=== PATIENT | female | born 1960 | race Caucasian/White ===

== ENCOUNTER 2019-06-29 19:11 | Observation (INO) ==
[2019-06-29 20:09] LABS: Basophils % 0.5 % (0.1-2.0); Eosinophils # 0.3 K/mm3 (0.0-0.4); Eosinophils % 3.3 % (0.1-12.0); Hematocrit 51.1 % (37.0-47.0); Hemoglobin 16.8 g/dL (12.2-16.2); Lymphocytes # 3.5 K/mm3 (0.7-4.5); Lymphocytes % 42.4 % (10-50); Mean Corpuscular HGB Conc 32.9 g/dL (31.8-35.4); Mean Corpuscular Volume 98.8 fl (81-99); Mean Platelet Volume 8.1 fl (7.4-10.4); Monocytes # 0.6 K/mm3 (0.1-1.0); Monocytes % 6.6 % (1.7-9.3); Neutrophils # 3.9 K/mm3 (1.8-7.8); Neutrophils % 47.1 % (37.0-80.0); Platelet Count 266 K/mm3 (142-424); Red Blood Count 5.17 M/mm3 (4.20-5.40); Red Cell Distribution Width 15.5 % (11.5-17.5); White Blood Count 8.3 K/mm3 (4.8-10.8)
[2019-06-29 20:11] LABS: INR 1.41 (0.9-1.1); Prothrombin Time 14.4 seconds (9.4-11.8)
[2019-06-29 20:20] LABS: Albumin Level 2.9 gm/dL (3.4-5.0); Albumin/Globulin Ratio 0.7 (1.1-1.8); Anion Gap 12.3 mEq/L (5-15); Bilirubin,Total 0.4 mg/dL (0.2-1.0); C-Reactive Protein 0.8 mg/dL (0.0-0.9); Calcium 9.1 mg/dL (8.5-10.1); Globulin 4.4 gm/dl (1.3-3.2); Total Protein,Serum 7.3 gm/dL (6.4-8.2)
--- NOTE | 2019-06-29 20:44 | Emergency Department Note ---
ED Disposition Clinical Impression: Seizure as late effect of cerebrovascular accident (CVA), Diabetes 1.5, managed as type 2, Tobacco use Lower extremity cellulitis Qualifiers: Laterality: right Qualified Code(s): L03.115 - Cellulitis of right lower limb Obesity Qualifiers: Obesity type: due to excess calories Obesity classification: adult class 3 (BMI >= 40) Serious obesity comorbidity presence: with serious comorbidity Body mass index: BMI 45.0-49.9 Qualified Code(s): E66.01 - Morbid (severe) obesity due to excess calories; Z68.42 - Body mass index (BMI) 45.0-49.9, adult Disposition: Admitted as Observation Condition on Discharge: Good Referrals: Provider,Referral, MD [Primary Care Provider] - - Critical Care Critical Care Time: No Attestation: On 06/29/19, the high probability of a clinically significant, sudden or life threatening deterioration of the following system(s) required my full and direct attention, intervention and personal management. The time I documented below is in addition to time spent performing reported procedures but includes the fo llowing listed in this critical care notation. Medical Decision Making - Medical Records Medical records reviewed: Yes: I reviewed the patient's medical records. - Shahbaz Inquiry Pt receiving controlled substance: No Vital Signs: 06/29/19 19:20 Temperature 98.3 F Temperature Source Oral Pulse Rate [Right Radial] 106 H Respiratory Rate 20 Blood Pressure [Right Arm] 145/95 H Blood Pressure Mean [Right Arm] 111 02 Sat by Pulse Oximetry 91 L - Lab Data Lab results reviewed: Yes: I reviewed the patient's lab results. Lab Results 06/29/19 19:40: WBC 8.3, RBC 5.17, Hgb 16.8 H, Hct 51.1 H, MCV 98.8, MCH 32.5 H, MCHC 32.9, RDW 15.5, Plt Count 266, MPV 8.1, Neut % (Auto) 47.1, Lymph % (Auto) 42.4, [place] % (Auto) 6.6, Eos % (Auto) 3.3, Baso % (Auto) 0.5, Neut # (Auto) 3.9, Lymph # (Auto) 3.5, [place] # (Auto) 0.6, Eos # (Auto) 0.3, Baso # (Auto) 0.0 06/29/19 19:40: Sodium 138, Potassium 4.3, Chloride 98, Carbon Dioxide 32, Anion Gap 12.3, BUN 10, Creatinine 1.03 H, Estimated Creat Clear 59, Estimated GFR 55 L, Est GFR ( Amer) 67, Glucose 99, Calcium 9.1, Total Bilirubin 0.4, AST 15, ALT 15, Alkaline Phosphatase 114, C-Reactive Protein 0.8, Total Protein 7.3, Albumin 2.9 L, Globulin 4.4 H, Albumin/Globulin Ratio 0.7 L 06/29/19 19:40: Lactate 1.7 06/29/19 19:40: PT 14.4 H, INR 1.41 H Result diagrams: 06/29/19 19:40 06/29/19 19:40 Orders (Tests/Meds): ED MEDICATIONS Generic Name Dose Route Start Last Admin Trade Name Freq PRN Reason Stop Dose Admin Sodium Chloride 1,000 mls @ 999 mls/hr 06/29/19 19:30 06/29/19 19:54 Sod Chlor 0.9% 1000ml Bag IV 06/29/19 20:30 999 mls/hr .Q1H1M JUDD Administration Discontinued Medications Generic Name Dose Route Start Last Admin Trade Name Freq PRN Reason Stop Dose Admin Ketorolac Tromethamine 30 mg 06/29/19 19:28 06/29/19 19:54 Toradol 30mg/Ml Vial IV 06/29/19 19:29 30 mg ONCE ONE Administration ORDERS Category Date Time Status Complete Blood Count Auto Diff Stat Lab 06/29/19 19:40 Results Erythrocyte Sedimentation Rate Stat Lab 06/29/19 19:40 Results Levetiracetam (Keppra) Stat Lab 06/29/19 19:53 Ordered Blood Culture Stat Micro 06/29/19 19:54 Received Extremity Problem HPI - General Chief complaint: Extremity Injury, Lower Stated complaint: Right leg swollen Time Seen by Provider: 06/29/19 20:00 Mode of Arrival: Ambulatory Limitations: No Limitations Description of Symptoms (Recalled from ER Triage Doc. by RN): pt states that she is having right lower leg pain and swelling. pt states she has taken 2 rounds of antibiotics for this complaint with no relief. pt states the extremity is painful. - History of Present Illness HPI Narrative: pt with reddness and swelling of rt lower ext despite abx - she is on coumadin and has hx of upper ext dvt and cva in past and has tob use MD Complaint: extremity pain, extremity swelling Onset (ago): week(s) Consistency: constant Location: right, lower extremity Severity scale (1-10): 5 Quality: burning Radiation: none Associated symptoms: denies other symptoms Context: history of DVT, history of peripheral vascular disease - Related Data Home Medications Medication Instructions Recorded Confirmed Atorvastatin Calcium [Atorvastatin 40 mg PO DAILY 11/07/18 11/07/18 40mg Tab] Buspirone HCl 15 mg PO DAILY 11/07/18 11/07/18 Duloxetine HCl 20 mg PO DAILY 11/07/18 11/07/18 Fluticasone Propionate 1 spray INHALATION DAILY 11/07/18 11/07/18 Gabapentin [Neurontin 600mg 600 mg PO DAILY 11/07/18 11/07/18 tablet] Loratadine [Claritin 10mg Tablet] 10 mg PO DAILY 11/07/18 11/07/18 Meloxicam 15 mg PO DAILY 11/07/18 11/07/18 Metformin HCl [Metformin HCl ER] 1,000 mg PO DAILY 11/07/18 11/07/18 Methocarbamol [Methocarbamol 500mg 500 mg PO DAILY 11/07/18 11/07/18 Tablet] Metoprolol Succinate [Toprol XL 50 mg PO DAILY 11/07/18 11/07/18 50mg Tablet] Multivit,Calc,Mins/Iron/Folic [One 1 tab PO DAILY 11/07/18 11/07/18 Daily Women's Health Tab] Ropinirole HCl 1 mg PO DAILY 11/07/18 11/07/18 Trazodone HCl 50 mg PO DAILY 11/07/18 11/07/18 Warfarin Sodium 5 mg PO DAILY 11/07/18 11/07/18 levETIRAcetam [Levetiracetam] 750 mg PO BID 11/07/18 11/07/18 Previous Rx's Medication Instructions Recorded Fluconazole [Diflucan 100mg tablet] 100 mg PO DAILY #14 tablet 11/07/18 cephALEXin [Keflex 500mg Cap] 500 mg PO Q6H 10 Days #40 cap 06/01/19 Allergies Allergy/AdvReac Type Severity Reaction Status Date / Time Penicillins [PENICILLINS] Allergy Mild Verified 06/29/19 19:27 Iodinated Contrast Media - Allergy Unknown Verified 06/29/19 19:27 Oral and [IODINATED CONTRAST MEDIA - IV DYE] [facility] History - Hepatitis A Screen Drug use history?: No High risk sexual behaviors?: No History of sexually transmitted infection?: No Currently employed?: No Childcare worker?: No Do you have indoor plumbing?: Yes Do you have electricity?: Yes Attestation statement:: This patient has been screened for Hepatitis A risk factors. I have reviewed the patient's past medical history: Yes Medical History: Reports:: Cancer, Diabetes Mellitus Type 2 Denies:: Diabetes Mellitus Type 1 Laterality Cases: Bilateral: Tonsillectomy - Social History Smoking Status: Current every day smoker Tobacco Type: cigarettes # Packs/Day (cigarettes): 1 Alcohol Intake: never Occupational Status: disabled ROS Obtained: Yes All systems reviewed & no additional complaints - Constitutional Constitutional: Denies fever(s) - Eyes Eyes: Denies change in vision - ENT Ears, Nose, Mouth, and Throat: Denies sore throat - Cardiovascular Cardiovascular: Denies chest pain - Respiratory Respiratory: No cough - Gastrointestinal Gastrointestingal: Denies: vomiting - Musculoskeletal Musculoskeletal: Denies joint pain - Integumentary/Breasts Skin/Breast: Reports as per HPI, Reports rash - Neurologic Neurologic: Denies focal weakness Physical Exam - General General appearance: alert - Head Head exam: normocephalic - Eye Eye exam: Present: PERRL, EOMI. Absent: scleral icterus - ENT ENT exam: Present: mucous membranes dry - Neck Neck exam: Present: trachea midline - Respiratory Respiratory exam: Absent: respiratory distress - Cardiovascular Cardiovascular exam: Present: regular rate, systolic murmur, +S4 - Abdominal Exam Abdominal exam: Present: soft - Extremities Exam Extremities exam: Present: calf tenderness - Expanded Lower Extremity Exam Right Lower leg exam: Present: tenderness, swelling, erythema. Absent: Homans' sign Neurovascular/Tendon exam: Absent: normal capillary refill, extremity cold to touch - Neurological Exam Neurological exam: Present: alert, oriented X3, CN II-XII intact - Psychiatric Psychiatric exam: Present: normal affect - Skin Skin exam: Present: rash, other (reddness to rt lower ext )
[2019-06-29 21:40] LABS: Erythrocyte Sedimentation Rate 40 mm/hr (0-30)
[2019-06-30 06:09] LABS: Basophils % 0.6 % (0.1-2.0); Eosinophils # 0.3 K/mm3 (0.0-0.4); Eosinophils % 4.8 % (0.1-12.0); Hematocrit 46.7 % (37.0-47.0); Lymphocytes # 2.5 K/mm3 (0.7-4.5); Lymphocytes % 44.6 % (10-50); Mean Corpuscular HGB Conc 31.3 g/dL (31.8-35.4); Mean Corpuscular Volume 99.7 fl (81-99); Monocytes # 0.5 K/mm3 (0.1-1.0); Monocytes % 8.6 % (1.7-9.3); Neutrophils # 2.3 K/mm3 (1.8-7.8); Neutrophils % 41.3 % (37.0-80.0); Platelet Count 228 K/mm3 (142-424); Red Blood Count 4.69 M/mm3 (4.20-5.40); Red Cell Distribution Width 15.4 % (11.5-17.5); White Blood Count 5.5 K/mm3 (4.8-10.8)
[2019-06-30 06:15] LABS: Anion Gap 6.9 mEq/L (5-15); Calcium 8.5 mg/dL (8.5-10.1)
[2019-06-30 06:17] LABS: INR 1.53 (0.9-1.1); Prothrombin Time 15.6 seconds (9.4-11.8)
[2019-06-30 06:47] LABS: Hemoglobin 14.6 g/dL (12.2-16.2)
--- NOTE | 2019-06-30 07:04 | Non-Invasive Vascular Report ---
"Venous Exam Indications: 729.5 Pain in limb. 782.3 Edema. IMPRESSIONS 1. There is no evidence of significant Reflux. 2. No evidence of deep or superficial vein thrombosis involving the right lower extremity 3. Unable to scan in the R groin area d/t body habitus. Limited exam. Right lower extremity venous duplex evaluation. Doppler flow study including spectral analysis, color and molina scale imaging. Location: Bedside. Patient status: Inpatient. Tables: Venous flow and imaging: + + + + + |Location |Overall |Flow properties |Comments | + + + + + |Right common femoral |Not | | | | |visualized | | | + + + + + |Right saphenofemoral |Not | | | |junction |visualized | | | + + + + + |Right profunda |Not | | | |femoral |visualized | | | + + + + + |Right femoral |Patent |Normal phasicity; | | | | |spontaneous; normal| | | | |augmentation; | | | | |compressible | | + + + + + |Right greater |Patent |Normal phasicity; | | |saphenous | |spontaneous; normal| | | | |augmentation; | | | | |compressible | | + + + + + |Right popliteal |Patent |Normal phasicity; | | | | |spontaneous; normal| | | | |augmentation; | | | | |compressible | | + + + + + |Right posterior |Patent |Compressible |Dificult to | |tibial | | |image. | + + + + + |Right peroneal |Patent |Compressible |Dificult to | | | | |image | + + + + + |Right gastrocnemius |Patent |Compressible |Dificult to | | | | |image | + + + + + |Right soleal |Not | | | | |visualized | | | + + + + + (Report amended ) Electronically signed by: Gera Rico [id number]"
--- NOTE | 2019-06-30 07:30 | Pharmacy Consult Notes ---
[facility] Pharmacy VTE Monitoring - Patient Demographics Admission date: 06/29/19 Report Date: 06/30/19 Time: 07:30 Allergies/Adverse Reactions: Patient Allergies Penicillins [PENICILLINS] Allergy (Mild, Verified 06/29/19 19:27) Iodinated Contrast Media - Oral and [IODINATED CONTRAST MEDIA - IV DYE] Allergy (Unknown, Verified 06/29/19 19:27) Height: 1.7 m Weight: 136.531 kg Patient Problems: Current Active Problems Lower extremity cellulitis (Acute) Obesity (Acute) Seizure as late effect of cerebrovascular accident (CVA) (Acute) Diabetes 1.5, managed as type 2 (Acute) Tobacco use (Acute) - VTE Risk Labs: VTE Related Lab Results Hgb 14.6 g/dL (12.2-16.2) D 06/30/19 05:58 Hct 46.7 % (37.0-47.0) 06/30/19 05:58 Plt Count 228 K/mm3 (142-424) 06/30/19 05:58 PT 15.6 seconds (9.4-11.8) H 06/30/19 05:58 INR 1.53 (0.9-1.1) H 06/30/19 05:58 BUN 10 mg/dL (7-18) 06/30/19 05:58 Creatinine 1.01 mg/dL (0.55-1.02) 06/30/19 05:58 Estimated Creat Clear 60 mL/min (50-200) 06/30/19 05:58 VTE Score: 9 VTE Risk Level: Moderate Risk - Prophylaxis VTE Prophylaxis Ordered?: Yes Types of VTE Prophylaxis: Pharmacological Pharmacologic Type: Warfarin - VTE Diagnosis Confirmed Treatment or plan recommended: Continue Current Treatment
--- NOTE | 2019-06-30 08:31 | Pharmacy Consult Notes ---
- Pharmacy Consult Date: 06/30/19 Time: 08:29 Referring provider: DR. ISIDRO Reason for Consult:: VANCOMYCIN DOSING Allergies and ADEs:: Allergies Allergy/AdvReac Type Severity Reaction Status Date / Time Penicillins [PENICILLINS] Allergy Mild Verified 06/29/19 19:27 Iodinated Contrast Media - Allergy Unknown Verified 06/29/19 19:27 Oral and [IODINATED CONTRAST MEDIA - IV DYE] Home Medications:: Home Medications Medication Instructions Recorded Confirmed Type Atorvastatin Calcium [Atorvastatin 40 mg PO DAILY 11/07/18 06/29/19 History 40mg Tab] Fluticasone Propionate 1 spray INHALATION DAILY 11/07/18 06/29/19 History Gabapentin [Neurontin 600mg 600 mg PO QID 11/07/18 06/29/19 History tablet] Loratadine [Claritin 10mg Tablet] 10 mg PO DAILY 11/07/18 06/29/19 History Metformin HCl [Metformin HCl ER] 500 mg PO BID 11/07/18 06/29/19 History Ropinirole HCl 1 mg PO DAILY 11/07/18 06/29/19 History Trazodone HCl 100 mg PO DAILY 11/07/18 06/29/19 History Warfarin Sodium 5 mg PO MOFR 11/07/18 06/30/19 History levETIRAcetam [Levetiracetam] 750 mg PO BID 11/07/18 06/29/19 History Aspirin [Aspir 81] 81 mg PO DAILY 06/29/19 06/29/19 History Pantoprazole Sodium [Protonix 40mg 40 mg PO DAILY 06/29/19 06/29/19 History tablet] Tiotropium [place] [Spiriva 1 puff IH DAILY 06/29/19 06/29/19 History 18mcg/puff inhaler] Warfarin Sodium 7.5 mg PO SUTUWETHSA 06/29/19 06/30/19 History Height: 1.7 m Weight: 136.531 kg Laboratory Results:: Laboratory Results - last 24 hr 06/29/19 19:40: WBC 8.3, RBC 5.17, Hgb 16.8 H, Hct 51.1 H, MCV 98.8, MCH 32.5 H, MCHC 32.9, RDW 15.5, Plt Count 266, MPV 8.1, Neut % (Auto) 47.1, Lymph % (Auto) 42.4, [place] % (Auto) 6.6, Eos % (Auto) 3.3, Baso % (Auto) 0.5, Neut # (Auto) 3.9, Lymph # (Auto) 3.5, [place] # (Auto) 0.6, Eos # (Auto) 0.3, Baso # (Auto) 0.0, ESR 40 H 06/29/19 19:40: Sodium 138, Potassium 4.3, Chloride 98, Carbon Dioxide 32, Anion Gap 12.3, BUN 10, Creatinine 1.03 H, Estimated Creat Clear 59, Estimated GFR 55 L, Est GFR ( Amer) 67, Glucose 99, Calcium 9.1, Total Bilirubin 0.4, AST 15, ALT 15, Alkaline Phosphatase 114, C-Reactive Protein 0.8, Total Protein 7.3, Albumin 2.9 L, Globulin 4.4 H, Albumin/Globulin Ratio 0.7 L 06/29/19 19:40: Lactate 1.7 06/29/19 19:40: PT 14.4 H, INR 1.41 H 06/30/19 05:53: POC Glucose 111 H 06/30/19 05:58: WBC 5.5 D, RBC 4.69, Hgb 14.6 D, Hct 46.7, MCV 99.7 H, MCH 31.2, MCHC 31.3 L, RDW 15.4, Plt Count 228, MPV 8.0, Neut % (Auto) 41.3, Lymph % (Auto) 44.6, [place] % (Auto) 8.6, Eos % (Auto) 4.8, Baso % (Auto) 0.6, Neut # (Auto) 2.3, Lymph # (Auto) 2.5, [place] # (Auto) 0.5, Eos # (Auto) 0.3, Baso # (Auto) 0.0 06/30/19 05:58: PT 15.6 H, INR 1.53 H 06/30/19 05:58: Sodium 140, Potassium 3.9, Chloride 103, Carbon Dioxide 34 H, Anion Gap 6.9, BUN 10, Creatinine 1.01, Estimated Creat Clear 60, Estimated GFR 57 L, Est GFR ( Amer) 69, Glucose 102, Calcium 8.5, Magnesium 1.4 Medical History: Reports:: Cancer, Congestive Heart Failure, Diabetes Mellitus Type 2, Hyperlipidemia, Hypertension, Peripheral Vascular Disease Denies:: Diabetes Mellitus Type 1, MRSA Assessment and Plan - Assessment and plan all Dx Assessment and Plan for all problems:: BASED ON PATIENT FACTORS, RECOMMEND VANCOMYCIN 2500 MG IV Q18H. WILL OBTAIN VANCOMYCIN TROUGH LEVEL PRIOR TO 4TH DOSE. PHARMACY WILL FOLLOW DAILY AND ADJUST APPROPRIATE.
--- NOTE | 2019-06-30 09:30 | Consult Report ---
History of Present Illness Consult date: 06/30/19 Requesting physician: Ponce Bragg Consult reason: congestive heart failure Chief complaint: LE edema and cellulitis Additional Medical History:: 1. Diabetes mellitus, treated for many years, previously with insulin 2. Hypertension 3. Hyperlipidemia 4. Morbid obesity 5. Abdominal and chest cellulitis, 05/2017 6. Congestive heart failure, recurrent A. Echo, 11/2016, difficult study due to obesity but appeared to have preserved ejection fraction but no meaningful information regarding valve status obtained. 7. History of cardiac catheterization approximately 7 years ago without coronary artery disease, per patient. No records available. 8. History of seizure disorder 9. History of stroke affecting right side 10. History of right upper extremity thrombus, now with chronic Coumadin therapy 11. COPD A. Tobacco abuse, 3 packs/day, continued 12. Obstructive sleep apnea with CPAP use 13. 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 History of present illness: 58-year-old white female admitted for lower extremity edema and cellulitis with concern for CHF. Patient denies any chest pain, pressure or tightness. She has chronic shortness of breath related to COPD, tobacco use and obstructive sleep apnea. Cardiology consulted for evaluation and treatment. [facility] History Medical History: Reports:: Cancer, Congestive Heart Failure, Diabetes Mellitus Type 2, Hyperlipidemia, Hypertension, Peripheral Vascular Disease Denies:: Diabetes Mellitus Type 1, MRSA *Have you ever received a pneumonia vaccine?: Yes *Have you received a flu vaccine this season?: No Other Medical History: Reports: Anemia, Arthritis, Cataracts, Sinus Problems, Thyroid Disease Laterality Cases: Bilateral: Tonsillectomy Other Surgeries: Yes: Colonoscopy, Tubal Ligation, Other Amputation: No Fractures: Yes (LEFT FOOT, FACIAL, RIB) - *Social History Educational Level: Attended High School Smoking Status: Current every day smoker Tobacco Type: cigars # Packs/Day (cigarettes): 2 Alcohol Intake: never *Occupational Status:: disabled *Travel in the last 8 weeks: None Family Hx:: Asthma, Cancer, Coronary Artery Disease, Diabetes, Heart Attack, Hypertension, Tuberculosis Meds Home Medications Medication Instructions Recorded Confirmed Type Atorvastatin Calcium [Atorvastatin 40 mg PO DAILY 11/07/18 06/29/19 History 40mg Tab] Fluticasone Propionate 1 spray INHALATION DAILY 11/07/18 06/29/19 History Gabapentin [Neurontin 600mg 600 mg PO QID 11/07/18 06/29/19 History tablet] Loratadine [Claritin 10mg Tablet] 10 mg PO DAILY 11/07/18 06/29/19 History Metformin HCl [Metformin HCl ER] 500 mg PO BID 11/07/18 06/29/19 History Ropinirole HCl 1 mg PO DAILY 11/07/18 06/29/19 History Trazodone HCl 100 mg PO DAILY 11/07/18 06/29/19 History Warfarin Sodium 5 mg PO MOFR 11/07/18 06/30/19 History levETIRAcetam [Levetiracetam] 750 mg PO BID 11/07/18 06/29/19 History Aspirin [Aspir 81] 81 mg PO DAILY 06/29/19 06/29/19 History Pantoprazole Sodium [Protonix 40mg 40 mg PO DAILY 06/29/19 06/29/19 History tablet] Tiotropium [place] [Spiriva 1 puff IH DAILY 06/29/19 06/29/19 History 18mcg/puff inhaler] Warfarin Sodium 7.5 mg PO SUTUWETHSA 06/29/19 06/30/19 History Allergies Allergy/AdvReac Type Severity Reaction Status Date / Time Penicillins [PENICILLINS] Allergy Mild Verified 06/29/19 19:27 Iodinated Contrast Media - Allergy Unknown Verified 06/29/19 19:27 Oral and [IODINATED CONTRAST MEDIA - IV DYE] Review of Systems - *Cardiovascular Reports shortness of breath with activity, Reports leg swelling, Denies chest pain - *Respiratory Reports shortness of breath with activity, Reports snoring - *Gastrointestinal Denies abdominal pain, Denies vomiting - *Genitourinary Denies blood in urine - *Musculoskeletal Reports back pain, Denies joint pain - *Neurologic Denies localized weakness Exam Vital signs and Labs for Last 24 Hours: Temp Pulse Resp BP Pulse Ox 97.7 F 75 15 119/71 92 L 06/30/19 08:00 06/30/19 08:00 06/30/19 08:00 06/30/19 08:00 06/30/19 08:00 Laboratory Results - last 24 hr 06/29/19 19:40: WBC 8.3, RBC 5.17, Hgb 16.8 H, Hct 51.1 H, MCV 98.8, MCH 32.5 H, MCHC 32.9, RDW 15.5, Plt Count 266, MPV 8.1, Neut % (Auto) 47.1, Lymph % (Auto) 42.4, [place] % (Auto) 6.6, Eos % (Auto) 3.3, Baso % (Auto) 0.5, Neut # (Auto) 3.9, Lymph # (Auto) 3.5, [place] # (Auto) 0.6, Eos # (Auto) 0.3, Baso # (Auto) 0.0, ESR 40 H 06/29/19 19:40: Sodium 138, Potassium 4.3, Chloride 98, Carbon Dioxide 32, Anion Gap 12.3, BUN 10, Creatinine 1.03 H, Estimated Creat Clear 59, Estimated GFR 55 L, Est GFR ( Amer) 67, Glucose 99, Calcium 9.1, Total Bilirubin 0.4, AST 15, ALT 15, Alkaline Phosphatase 114, C-Reactive Protein 0.8, Total Protein 7.3, Albumin 2.9 L, Globulin 4.4 H, Albumin/Globulin Ratio 0.7 L 06/29/19 19:40: Lactate 1.7 06/29/19 19:40: PT 14.4 H, INR 1.41 H 06/30/19 05:53: POC Glucose 111 H 06/30/19 05:58: WBC 5.5 D, RBC 4.69, Hgb 14.6 D, Hct 46.7, MCV 99.7 H, MCH 31.2, MCHC 31.3 L, RDW 15.4, Plt Count 228, MPV 8.0, Neut % (Auto) 41.3, Lymph % (Auto) 44.6, [place] % (Auto) 8.6, Eos % (Auto) 4.8, Baso % (Auto) 0.6, Neut # (Auto) 2.3, Lymph # (Auto) 2.5, [place] # (Auto) 0.5, Eos # (Auto) 0.3, Baso # (Auto) 0.0 06/30/19 05:58: PT 15.6 H, INR 1.53 H 06/30/19 05:58: Sodium 140, Potassium 3.9, Chloride 103, Carbon Dioxide 34 H, Anion Gap 6.9, BUN 10, Creatinine 1.01, Estimated Creat Clear 60, Estimated GFR 57 L, Est GFR ( Amer) 69, Glucose 102, Calcium 8.5, Magnesium 1.4 I & O for Last 24 hours: Intake & Output 06/27/19 06/28/19 06/29/19 06/30/19 11:59 11:59 11:59 11:59 Intake Total 1240 / 1240 Balance 1240 / 1240 Weight 300 lb 15.989 oz - *Routine HEENT Exam Head: Present: normocephalic Eye: Present: EOMI, PERRL ENT: Present: mucous membranes moist - *Routine Neck Exam Present: supple. Absent: JVD, carotid bruit - *Routine Respiratory Exam Present: CTA bilaterally. Absent: accessory muscle use, rales, rhonchi, wheezes - *Routine Cardiovascular Exam Present: RRR. Absent: murmur, gallop, rubs - *Routine Abdominal Exam Present: soft. Absent: tenderness, distended, guarding - *Routine Extremities Exam Present: edema, calf tenderness Comments: RLE with edema and warmth to touch. Reddish-purple discoloration of RLE noted. DP and PT pulses not palpable bilaterally but edema noted of both feet and both feet are warm. - *Routine Neurological Exam Present: alert, oriented X3, moving all extremities Assessment and Plan (1) CHF (congestive heart failure) Current visit: Yes Status: Acute Category: Medical Code(s): I50.9 - Heart failure, unspecified (2) Diastolic dysfunction Current visit: Yes Status: Acute Category: Medical Code(s): I51.89 - Other ill-defined heart diseases (3) HHD (hypertensive heart disease) Current visit: Yes Status: Acute Category: Medical Code(s): I11.9 - Hypertensive heart disease without heart failure (4) Diabetes 1.5, managed as type 2 Current visit: Yes Status: Acute Category: Medical Code(s): E13.9 - Other specified diabetes mellitus without complications (5) Obesity Current visit: Yes Status: Acute Qualifiers: Obesity type: due to excess calories Obesity classification: adult class 3 (BMI >= 40) Serious obesity comorbidity presence: with serious comorbidity Body mass index: BMI 45.0-49.9 Qualified Code(s): E66.01 - Morbid (severe) obesity due to excess calories; Z68.42 - Body mass index (BMI) 45.0-49.9, adult Category: Medical Code(s): E66.9 - Obesity, unspecified (6) Seizure as late effect of cerebrovascular accident (CVA) Current visit: Yes Status: Acute Category: Medical Code(s): I69.398 - Other sequelae of cerebral infarction; R56.9 - Unspecified convulsions (7) Tobacco use Current visit: Yes Status: Acute Category: Medical Code(s): Z72.0 - Tobacco use (8) Cellulitis Current visit: No Status: Acute Qualifiers: Site of cellulitis: extremity Site of cellulitis of extremity: lower extremity Laterality: left Qualified Code(s): L03.116 - Cellulitis of left lower limb Category: Medical Code(s): L03.90 - Cellulitis, unspecified (9) Dependent edema Current visit: No Status: Acute Category: Medical Code(s): R60.9 - Edema, unspecified - Assessment and plan all Dx Assessment and Plan for all problems:: 1. Check CXR and BNP to evaluate severity of CHF. 2. Echo is pending. Will make further recommendations based on results. 3. Clinically stable (no chest pain/pressure or increased SOA) at this time. 4. Pt states she takes lasix daily but it is not listed on her home meds. Will give a dose today and await results of echo for further dosing if needed. 5. On antibiotics for cellulitis.
--- NOTE | 2019-06-30 10:33 | History & Physical Report ---
*Admission Date: 06/29/19 *Chief complaint: swollen leg *History of present illness: this wf presented to the ed with swollen rt lower leg which has progressed despite op abx and visit to [place] [facility] - that chart was requested and reviewed in the ed and placed in pts record- she has hx of chf and multiple dvt on coumadin- has had cva in past - in the ed was noted to have reddness and was [facility] History Medical History: Reports:: Cancer, Congestive Heart Failure, Diabetes Mellitus Type 2, Hyperlipidemia, Hypertension, Peripheral Vascular Disease Denies:: Diabetes Mellitus Type 1, MRSA *Have you ever received a pneumonia vaccine?: Yes *Have you received a flu vaccine this season?: No Other Medical History: Reports: Anemia, Arthritis, Cataracts, Sinus Problems, Thyroid Disease Laterality Cases: Bilateral: Tonsillectomy Other Surgeries: Yes: Colonoscopy, Tubal Ligation, Other Amputation: No Fractures: Yes (LEFT FOOT, FACIAL, RIB) - *Social History Educational Level: Attended High School Smoking Status: Current every day smoker Tobacco Type: cigars # Packs/Day (cigarettes): 2 Alcohol Intake: never *Occupational Status:: disabled *Travel in the last 8 weeks: None Family Hx:: Asthma, Cancer, Coronary Artery Disease, Diabetes, Heart Attack, Hypertension, Tuberculosis Review of Systems - *Neurologic Denies localized weakness Meds Home Medications Medication Instructions Recorded Confirmed Type Atorvastatin Calcium [Atorvastatin 40 mg PO DAILY 11/07/18 06/29/19 History 40mg Tab] Fluticasone Propionate 1 spray INHALATION DAILY 11/07/18 06/29/19 History Gabapentin [Neurontin 600mg 600 mg PO QID 11/07/18 06/29/19 History tablet] Loratadine [Claritin 10mg Tablet] 10 mg PO DAILY 11/07/18 06/29/19 History Metformin HCl [Metformin HCl ER] 500 mg PO BID 11/07/18 06/29/19 History Ropinirole HCl 1 mg PO DAILY 11/07/18 06/29/19 History Trazodone HCl 100 mg PO DAILY 11/07/18 06/29/19 History Warfarin Sodium 5 mg PO MOFR 11/07/18 06/30/19 History levETIRAcetam [Levetiracetam] 750 mg PO BID 11/07/18 06/29/19 History Aspirin [Aspir 81] 81 mg PO DAILY 06/29/19 06/29/19 History Pantoprazole Sodium [Protonix 40mg 40 mg PO DAILY 06/29/19 06/29/19 History tablet] Tiotropium [place] [Spiriva 1 puff IH DAILY 06/29/19 06/29/19 History 18mcg/puff inhaler] Warfarin Sodium 7.5 mg PO SUTUWETHSA 06/29/19 06/30/19 History Allergies Allergy/AdvReac Type Severity Reaction Status Date / Time Penicillins [PENICILLINS] Allergy Mild Verified 06/29/19 19:27 Iodinated Contrast Media - Allergy Unknown Verified 06/29/19 19:27 Oral and [IODINATED CONTRAST MEDIA - IV DYE] Exam Vital signs and Labs for Last 24 Hours: Temp Pulse Resp BP Pulse Ox 97.7 F 75 15 119/71 92 L 06/30/19 08:00 06/30/19 08:00 06/30/19 08:00 06/30/19 08:00 06/30/19 08:00 Laboratory Results - last 24 hr 06/29/19 19:40: WBC 8.3, RBC 5.17, Hgb 16.8 H, Hct 51.1 H, MCV 98.8, MCH 32.5 H, MCHC 32.9, RDW 15.5, Plt Count 266, MPV 8.1, Neut % (Auto) 47.1, Lymph % (Auto) 42.4, Nicholas % (Auto) 6.6, Eos % (Auto) 3.3, Baso % (Auto) 0.5, Neut # (Auto) 3.9, Lymph # (Auto) 3.5, Nicholas # (Auto) 0.6, Eos # (Auto) 0.3, Baso # (Auto) 0.0, ESR 40 H 06/29/19 19:40: Sodium 138, Potassium 4.3, Chloride 98, Carbon Dioxide 32, Anion Gap 12.3, BUN 10, Creatinine 1.03 H, Estimated Creat Clear 59, Estimated GFR 55 L, Est GFR ( Amer) 67, Glucose 99, Calcium 9.1, Total Bilirubin 0.4, AST 15, ALT 15, Alkaline Phosphatase 114, C-Reactive Protein 0.8, Total Protein 7.3, Albumin 2.9 L, Globulin 4.4 H, Albumin/Globulin Ratio 0.7 L 06/29/19 19:40: Lactate 1.7 06/29/19 19:40: PT 14.4 H, INR 1.41 H 06/30/19 05:53: POC Glucose 111 H 06/30/19 05:58: WBC 5.5 D, RBC 4.69, Hgb 14.6 D, Hct 46.7, MCV 99.7 H, MCH 31.2, MCHC 31.3 L, RDW 15.4, Plt Count 228, MPV 8.0, Neut % (Auto) 41.3, Lymph % (Auto) 44.6, Nicholas % (Auto) 8.6, Eos % (Auto) 4.8, Baso % (Auto) 0.6, Neut # (Auto) 2.3, Lymph # (Auto) 2.5, Nicholas # (Auto) 0.5, Eos # (Auto) 0.3, Baso # (Auto) 0.0 06/30/19 05:58: PT 15.6 H, INR 1.53 H 06/30/19 05:58: Sodium 140, Potassium 3.9, Chloride 103, Carbon Dioxide 34 H, Anion Gap 6.9, BUN 10, Creatinine 1.01, Estimated Creat Clear 60, Estimated GFR 57 L, Est GFR ( Amer) 69, Glucose 102, Calcium 8.5, Magnesium 1.4 06/30/19 05:58: B-Natriuretic Peptide 26 I & O for Last 24 hours: Intake & Output 06/27/19 06/28/19 06/29/19 06/30/19 11:59 11:59 11:59 11:59 Intake Total 1240 / 1240 Balance 1240 / 1240 Weight 300 lb 15.989 oz Assessment and Plan (1) CHF (congestive heart failure) Current visit: Yes Status: Acute Category: Medical Code(s): I50.9 - Heart failure, unspecified (2) Diastolic dysfunction Current visit: Yes Status: Acute Category: Medical Code(s): I51.89 - Other ill-defined heart diseases (3) HHD (hypertensive heart disease) Current visit: Yes Status: Acute Category: Medical Code(s): I11.9 - Hypertensive heart disease without heart failure (4) Diabetes 1.5, managed as type 2 Current visit: Yes Status: Acute Category: Medical Code(s): E13.9 - Other specified diabetes mellitus without complications (5) Obesity Current visit: Yes Status: Acute Qualifiers: Obesity type: due to excess calories Obesity classification: adult class 3 (BMI >= 40) Serious obesity comorbidity presence: with serious comorbidity Body mass index: BMI 45.0-49.9 Qualified Code(s): E66.01 - Morbid (severe) obesity due to excess calories; Z68.42 - Body mass index (BMI) 45.0-49.9, adult Category: Medical Code(s): E66.9 - Obesity, unspecified (6) Seizure as late effect of cerebrovascular accident (CVA) Current visit: Yes Status: Acute Category: Medical Code(s): I69.398 - Other sequelae of cerebral infarction; R56.9 - Unspecified convulsions (7) Tobacco use Current visit: Yes Status: Acute Category: Medical Code(s): Z72.0 - Tobacco use (8) Cellulitis Current visit: No Status: Acute Qualifiers: Site of cellulitis: extremity Site of cellulitis of extremity: lower extremity Laterality: left Qualified Code(s): L03.116 - Cellulitis of left lower limb Category: Medical Code(s): L03.90 - Cellulitis, unspecified (9) Dependent edema Current visit: No Status: Acute Category: Medical Code(s): R60.9 - Edema, unspecified
--- NOTE | 2019-06-30 21:37 | Cardiology Report ---
PROCEDURE: 2-D M-mode and color Doppler study INDICATIONS FOR THE TEST: Chest pain COPD Heart Murmur Tobacco Smoking+ Palpitations Fatigue Syncope Edema+ Hypertension+Diabetes Mellitus+ Rheumatic Fever SOB+POWELL Obesity+Hyperlipidemia Family History HD Additional History TDE BODY HABITUS, UNABLE TO ROLL DUE TO BACK PAIN PATIENT INFORMATION HEIGHT: 69 WEIGHT:300 GENDER: Female B/P:145/95 2-D/M-MODE INTERPRETATION: 2-D MEASUREMENTS OBSERVED VALUES IN CMS Right Ventricular Dimension (RVDd) 2.9 Interventricular Septum (Thickness)(IVsd) 1.5 Left Ventricular Internal Dimensions(LVIDd) 5.9 Left Ventricular Posterior Wall (Thickness)(LVPWd) 0.9 Aortic Root 3.3 Aortic Cusp Separation 2.1 Left Atrial Dimensions (LAD) 4.6 2D 1. Left atrium is mildly enlarged, left ventricle is normal size, there is mild concentric left ventricular hypertrophy, visually estimated ejection fraction 55% with no obvious regional wall motion abnormality, endocardial surfaces are very poorly visualized. 2. The right atrium and right ventricle are mildly enlarged with normal contractility. 3. The aortic valve is minimally thickened and fibrosed. 4. The mitral and tricuspid valvular grossly normal. 5. The pulmonic valve is poorly visualized. 6. No significant pericardial effusion noted. DOPPLER INTERROGATION: Doppler interrogation of the aortic, mitral and tricuspid valvular presence of mild mitral and tricuspid regurgitation, tricuspid regurgitation jet velocity is inadequate for calculation of the right ventricular systolic pressure, Doppler evidence of impaired LV relaxation seen. There is no tissue Doppler performed. CONCLUSION: 1. Mild biatrial enlargement, normal left ventricular size, mild concentric left ventricular hypertrophy, visually estimated ejection fraction 55% with no regional wall motion abnormality. Doppler evidence of impaired LV relaxation seen. 2. Enlarged right ventricle with normal contractility. 3. Mild mitral and tricuspid regurgitation. 4. No significant pericardial effusion noted.
== END 2019-06-30 19:58 | disposition left against medical advice (07) ==
LOC: ER 19:11 → 2ND 19:11 → OBSVTOIN 22:05 → INTOOBSV 22:05 → 2ND 22:06
PROVIDERS: ADMIT Emergency Medicine; ATTEND Emergency Medicine
CPT/HCPCS: 36415; 71020; 71046; 80048; 80053; 80177; 82962; 83605; 83735; 83880; 85025; 85610; 85651; 86140; 87040; 93306; 93971; 96365; 96367; 96372; 96375; 99284; G0378; J3370